=== PATIENT | male | born 1980 | race Caucasian/White ===

== ENCOUNTER 2019-03-10 21:43 | Emergency (ER) | payer SELFPAY ==
[2019-03-10] MEDS ORDERED: Ondansetron PF 4 MG/2 ML Vial ONE (21:53)
[2019-03-10] MEDS ORDERED: Morphine 10 MG/ML VIAL ONE (21:53)
[2019-03-10 22:35] LABS: #Basophils 0.1 thou/uL (0.0-0.2); #Eosinphils 0.2 thou/uL (0.0-0.7); #Lymphocytes 1.7 thou/uL (1.20-3.40); #Monocytes 0.6 thou/uL (0.11-0.59); %Basophils 0.9 % (0.0-1.0); %Eosinophils 1.8 % (0.0-10.0); %Lymphocytes 17.5 % (21.0-51.0); %Monocytes 6.4 % (0.0-10.0); %Neutrophils 73.5 % (42.0-75.0); Hemoglobin 13.8 g/dL (14.0-18.0); Mean Corpuscular HGB CONC 34.7 g/dL (32.0-36.0); Mean Corpuscular Hemoglobin 32.2 pg (27.0-31.0); Mean Corpuscular Volume 92.8 fL (78.0-98.0); Mean Platelet Volume 8.9 fL (7.4-10.4); Platelet Count 270 thou/uL (130-400); RBC Distribution Width 11.1 % (11.5-14.5); Red Blood Cell (RBC) Count 4.29 mill/uL (4.70-6.10); White Blood Cell (WBC) Count 9.5 thou/uL (4.8-10.8)
[2019-03-10 22:38] LABS: PTT 30.5 SEC (22.9-36.1); Prothrombin Time 13.4 SEC (12.0-14.7)
[2019-03-10 22:54] LABS: Anion Gap 13 mmol/L (10-20); BUN (Urea Nitrogen) 15 mg/dL (8.9-20.6); Calc. Creatinine Clearance 0 mL/min (70-130); Calcium 9.6 mg/dL (7.8-10.44); Carbon Dioxide 23 mmol/L (22-29); Chloride 105 mmol/L (98-107); Estimated GFR-MDRD 83; Glucose 133 mg/dL (70-105); Potassium 4.3 mmol/L (3.5-5.1); Sodium 137 mmol/L (136-145)
[2019-03-10] MEDS ORDERED: Morphine 4 MG/ML VIAL ONE (23:20)
[2019-03-10] MEDS ORDERED: Lidocaine 1% PF 5 ML VIAL ONE (23:21)
[2019-03-10] MEDS ORDERED: Bupivacaine 0.25% 10 ML VIAL ONE (23:29)
== END 2019-03-11 00:23 | disposition short-term general hospital (02) ==
LOC: ERS 21:43
DX: S39.840A Fracture of corpus cavernosum penis, initial encounter (principal); S37.39XA Other injury of urethra, initial encounter; F17.200 Nicotine dependence, unspecified, uncomplicated; X50.9XXA Other and unspecified overexertion or strenuous movements or postures, initial encounter
CPT/HCPCS: 64450; 80048; 85025; 85610; 85730; 96361; 96374; 96375; 96376; J2001; J2270; J2405; S0020